=== PATIENT | male | born 1950 | race Caucasian/White ===

== ENCOUNTER 2018-03-25 08:32 | Inpatient (IN) | payer MEDICARE, OTHER | END 2018-04-01 08:55 | disposition home or self-care (01) | LOC: PAS IN 08:32 → ORTHO 4S 14:25 | PROC: 0SRB0J9 Replacement of Left Hip Joint with Synthetic Substitute, Cemented, Open Approach (ICD-10-PCS; principal; 2018-03-25 10:42) | DX: M16.12 Unilateral primary osteoarthritis, left hip (principal); D62 Acute posthemorrhagic anemia ==

== ENCOUNTER 2022-11-21 03:02 | Emergency (ER) | payer MEDICARE, OTHER ==
[~2022-11-21] VITALS: Ht 170.2 cm; Wt 81.8 kg
[~2022-11-21 03:02] MED LIST: NO HOME MEDS
[2022-11-21 03:10] VITALS: BP 167/87; PULSE 64; RESP 19; TEMP 97.7; O2SAT 96
[2022-11-21] MEDS ORDERED: LIDOcaine 1% W/epiNEPHrine 1:100,000 20ml vial SQ ONE (03:30)
[2022-11-21] MEDS ORDERED: LIDOcaine 1% W/epiNEPHrine 1:200,000 10ml vial IJ STA (03:35)
[2022-11-21] MEDS ORDERED: LIDOCAINE 1%/EPI 1:100,000 inj. 10 ML multi-dose vial SQ ONE (03:40)
--- NOTE | 2022-11-21 04:27 | NUR ---
EAR FLUSHED WITH 120ML WARM WATER. LARGE WAX PLUG REMOVED WITH IRRIGATION PT STATES HE FEELS MUCH BETTER INFORMED
[2022-11-21] MEDS ORDERED: Cipro HC otic suspension 10ML bottle RIGHT EAR SCH (08:00)
== END 2022-11-21 04:29 | disposition home or self-care (01) ==
LOC: ER 03:03
DX: T16.1XXA Foreign body in right ear, initial encounter (principal); H61.21 Impacted cerumen, right ear; W44.8XXA Other foreign body entering into or through a natural orifice, initial encounter; Y93.89 Activity, other specified; Y92.89 Other specified places as the place of occurrence of the external cause; Y99.8 Other external cause status
CPT/HCPCS: 69210; 99284; J3490